=== PATIENT | female | born 1940 | race Caucasian/White ===

== ENCOUNTER 2019-05-02 19:10 | Emergency (ER) | payer MEDICARE ==
[2019-05-02 20:15] VITALS: BP 133/66
[2019-05-02] MEDS ORDERED: Tetan/Diph/Pertus SYR(Tdap)* 0.5 ML SYR(BOOSTRIX) use SYR contains LATEX IM ONE (20:27)
--- NOTE | 2019-05-02 20:40 | ED ---
Upper Extremity Pain - HPI Summary HPI Summary: 78 yr old female with the complaint of skin avulsion and injury to the left middle finger over the DIP skin crease volar side. No other injuries. She fell when walking the dog and trying to get a stone out of the shoe. She fell on the concrete lip that was sticking up. Unsure of last tetanus shot. Pain is moderate. - History of Current Complaint Chief Complaint: UCWounds Stated Complaint: LACERATION LEFT MIDDLE FINGER Time Seen by Provider: 05/02/19 20:21 - Allergies/Home Medications Allergies/Adverse Reactions: Allergies Allergy/AdvReac Type Severity Reaction Status Date / Time No Known Allergies Allergy Verified 05/02/19 20:16 Home Medications: Home Medications Cholecalciferol TAB* [Vitamin D TAB*] 1,000 unit PO DAILY 05/02/19 [History Confirmed 05/02/19] Levothyroxine TAB* [Synthroid TAB*] 25 mcg PO 0800 05/02/19 [History Confirmed 05/02/19] Metoprolol Tartrate TAB* [Lopressor TAB*] 25 mg PO DAILY 05/02/19 [History Confirmed 05/02/19] Multivitamin [Multiple Vitamins] 1 tab PO DAILY 05/02/19 [History Confirmed ] Omeprazole 20 mg PO DAILY 05/02/19 [History Confirmed 05/02/19] Soy Isofla/Blk Cohosh/Mag Bark [Estroven 155 mg Capsule] 155 mg PO DAILY [History Confirmed 05/02/19] Venlafaxine ER (NF) [Effexor ER (NF)] 150 mg PO DAILY 05/02/19 [History Confirmed 05/02/19] PMH/Surg Hx/FS Hx/Imm Hx Endocrine/Hematology History: Reports: Hx Thyroid Disease Cardiovascular History: Reports: Hx Hypertension - Surgical History Surgery Procedure, Year, and Place: left knee replacement 3 yrs Infectious Disease History: No Infectious Disease History: Denies: Traveled Outside the [place] in Last 30 Days - Family History Known Family History: Positive: None - Social History Occupation: Retired Alcohol Use: Occasionally Substance Use Type: Reports: None Smoking Status (MU): Never Smoked Tobacco Review of Systems Constitutional: Negative Positive: Other - left middle finger contusion, skin avulsion. All Other Systems Reviewed And Are Negative: Yes Physical Exam Triage Information Reviewed: Yes Vital Signs On Initial Exam: Initial Vitals Temp Pulse Resp BP Pulse Ox 98.5 F 82 18 133/66 95 05/02/19 20:08 05/02/19 20:08 05/02/19 20:08 05/02/19 20:08 05/02/19 20:08 Vital Signs Reviewed: Yes Appearance: Positive: Well-Appearing Skin: Positive: Warm Head/Face: Positive: Normal Head/Face Inspection Eyes: Positive: EOMI ENT: Positive: Normal ENT inspection Neck: Positive: Nontender Respiratory/Lung Sounds: Positive: Clear to Auscultation Cardiovascular: Positive: Pulses are Symmetrical in both Upper and Lower Extremities Abdomen Description: Negative: Distended Musculoskeletal: Positive: Strength/ROM Intact, Other - skin avulsion over the dip volar surface left middle finger. 1.5 cm avulsion by 3 mm wide over volar DIP middle left finger. Tendon strength intact. Neurological: Positive: Sensory/Motor Intact, Alert, Oriented to Person Place, Time, CN Intact II-III, Normal Gait, Speech Normal Psychiatric: Positive: Normal - Bryant Coma Scale Best Eye Response: 4 - Spontaneous Best Motor Response: 6 - Obeys Commands Best Verbal Response: 5 - Oriented Coma Scale Total: 15 Procedures - Splinting Left 3rd Digit Location: left middle finger Pre-Made Type: metal Splint: volar Pre-Proc Neuro Vasc Exam: normal Post-Proc Neuro Vasc Exam: normal Splint Applied by Provider: Jignesh Daigle - splint applied by nv with sterile dressing antibiotic ointment Diagnostics - Vital Signs Vital Signs Temp Pulse Resp BP Pulse Ox 05/02/19 20:08 98.5 F 82 18 133/66 95 - Laboratory Lab Statement: Any lab studies that have been ordered have been reviewed, and results considered in the medical decision making process. - Radiology left middle finger Radiology Interpretation Completed By: ED Physician - head of intermediate phalynx fracture. Course/Dx - Course Course Of Treatment: 78 yr old with avulsion of skin off the volar surface over the skin crease of the DIP joint area. Fx of head of intermediate phalynx. finger splinted with steril dressing and the patient had the wound irrigated with 300cc normal saline by nurse. FU with orthopedics tomorrow. She goes to [facility] in [place] already. - Diagnoses Provider Diagnoses: Avulsion of skin of finger, Nondisplaced fracture, Fracture of middle phalanx of finger of left hand Discharge ED - Sign-Out/Discharge Documenting (check all that apply): Patient Departure All imaging exams completed and their final reports reviewed: No - Discharge Plan Condition: Good Disposition: HOME Prescriptions: Cephalexin CAP* [Keflex CAP*] 500 mg PO TID #15 cap Patient Education Materials: Finger Fracture (ED), Skin Avulsion (ED) Referrals: Billie Alberto MD [Primary Care Provider] - Tamara SHELDON,Melo Stone [Medical Doctor] - 1 Day Additional Instructions: BE SURE TO CALL [facility]OS TOMORROW AND GET FOLLOW UP FOR YOUR BROKEN FINGER> WEAR THE SPLINT> - Billing Disposition and Condition Condition: GOOD Disposition: Home
[2019-05-02] MEDS ORDERED: Cephalexin CAP* 500 MG PO ONE (21:11)
--- NOTE | 2019-05-03 11:06 | UC ---
- Progress Note Progress Note: Final radiologist reading from May 02, 2019 of the left middle finger is interpreted as possible nondisplaced fracture of the middle phalanx. Provider interpretation same date is the same and the patient is following up with orthopedics therefore there is no discrepancy. Course/Dx - Diagnoses Provider Diagnoses: Avulsion of skin of finger, Nondisplaced fracture, Fracture of middle phalanx of finger of left hand Discharge ED - Sign-Out/Discharge Documenting (check all that apply): Patient Departure All imaging exams completed and their final reports reviewed: Yes - Discharge Plan Condition: Good Disposition: HOME Prescriptions: Cephalexin CAP* [Keflex CAP*] 500 mg PO TID #15 cap Patient Education Materials: Finger Fracture (ED), Skin Avulsion (ED) Referrals: Billie Alberto MD [Primary Care Provider] - Tamara SHELDON,Melo Stone [Medical Doctor] - 1 Day Additional Instructions: BE SURE TO CALL [facility] TOMORROW AND GET FOLLOW UP FOR YOUR BROKEN FINGER> WEAR THE SPLINT> - Billing Disposition and Condition Condition: GOOD Disposition: Home
== END 2019-05-02 21:35 | disposition home or self-care (01) ==
LOC: UCCORT 19:10
DX: S62.623A Displaced fracture of middle phalanx of left middle finger, initial encounter for closed fracture (principal); S61.203A Unspecified open wound of left middle finger without damage to nail, initial encounter; E07.9 Disorder of thyroid, unspecified; I10 Essential (primary) hypertension; Z23 Encounter for immunization; Z79.899 Other long term (current) drug therapy; W19.XXXA Unspecified fall, initial encounter; Y92.9 Unspecified place or not applicable; Y93.K1 Activity, walking an animal
CPT/HCPCS: 26720; 73140; 90471; 90715; 99202; A9270-GY; G0463